=== PATIENT | female | born 1960 | race Caucasian/White ===

== ENCOUNTER 2024-03-14 11:32 | Emergency (ER) | payer OTHER, SELFPAY ==
[2024-03-14 11:40] VITALS: BP 156/79; PULSE 84; RESP 16; TEMP 36.7; O2SAT 99
--- NOTE | 2024-03-14 12:24 | ED.DENTAL ---
HPI - Dental/Oral General Chief complaint: Dental/Oral Stated complaint: right jaw swollen Time Seen by Provider: 03/14/24 12:24 Source: patient, RN notes reviewed and old records reviewed Mode of arrival: ambulatory Limitations: no limitations History of Present Illness HPI Narrative: Patient presents with complaints of right-sided facial swelling. She reports that symptoms began with some right-sided dental pain 1 or 2 days ago, she did not think much of this, she wakened this morning with swelling to the right jaw. Swelling does not extend into the neck. She is able to manage own secretions. Able to speak in complete sentences. No wheezing, stridor, or drooling. She denies any injury or trauma. She has been taking [id number] pain relievers without relief Related Data Allergies Allergy/AdvReac Type Severity Reaction Status Date / Time No Known Allergies Allergy Verified 03/14/24 11:49 Review of Systems Review of Systems: All systems reviewed & are unremarkable except as noted in HPI and below Constitutional: Constitutional: Reports as per HPI and Reports no additional constitutional complaints ENT: Reports system reviewed and no additional complaints, except as documented, Reports dental pain and Reports facial pain Cardiovascular: Cardiovascular: Reports no additional cardiovascular complaints Respiratory: Respiratory: Reports no additional respiratory complaints Gastrointestinal: Gastrointestinal: Reports no additional gastrointestinal complaints Exam Const: General: cooperative, no acute distress, alert and awake Orientation/consciousness: oriented to person, oriented to place and oriented to time HENMT: Ears: TM's normal bilaterally Face images: 1. Facial swelling, no extension into the neck Mouth: Yes moist mucous membranes Teeth and gingiva: abnormal tooth and associated gingiva (Right lower) and multiple restorations Resp: Effort & Inspection: normal respiratory effort and able to speak in complete sentences Auscultation: clear to auscultation bilaterally, no crackles, no rales, no rhonchi and no wheezes Cardio: Palpation: normal PMI Rate: regular rate Rhythm: regular rhythm Heart sounds: S1 normal heart sound present and S2 normal heart sound present Neuro: General: oriented to person, oriented to place and oriented to time Cranial nerves: Yes CN's II-XII intact bilaterally Psych: Appearance: grossly normal Thought process: Normal thought process present Insight: Good insight present (Psych) Judgement: Good judgement present (Psych) Course Course Level of Care: Express Care Visit Vital Signs Vital signs: Vital Signs Temperature 98.0 F 03/14/24 11:40 Pulse Rate 84 03/14/24 11:40 Respiratory Rate 16 03/14/24 11:40 Blood Pressure 156/79 H 03/14/24 11:40 Pulse Oximetry 99 03/14/24 11:40 Oxygen Delivery Room Air 03/14/24 11:40 Temperature 98.0 F 03/14/24 11:40 Pulse Rate 84 03/14/24 11:40 Respiratory Rate 16 03/14/24 11:40 Blood Pressure 156/79 H 03/14/24 11:40 Pulse Oximetry 99 03/14/24 11:40 Oxygen Delivery Room Air 03/14/24 11:40 MDM - Dental/Oral MDM Narrative Medical decision making narrative: Patient with right lower dental pain, resulting facial swelling. Able to manage own secretions, no wheezing or stridor. Nontoxic appearing. Since discharge home with p.o. antibiotics, dental follow-up, primary care follow-up. Emergency department for new or worse symptoms. Discharge instructions reviewed with patient, as well as provided in writing per nursing staff. The instructions also include specific and strict return/GO TO THE ER as well as f/u information. All questions have been answered, and the patient deny any further questions with discharge and discharge plan Some parts of this dictation were generated by voice recognition software and may contain typographical and/or grammatical inaccuracies. Differential Diagnos
== END 2024-03-14 12:40 | disposition home or self-care (01) ==
PROVIDERS: Emergency Provider Nurse Practitioner Family
DX: K04.7 Periapical abscess without sinus (principal); R03.0 Elevated blood-pressure reading, without diagnosis of hypertension
CPT/HCPCS: 99203; G0463